=== PATIENT | male | born 1970 | race Caucasian/White ===

== ENCOUNTER 2019-01-01 06:56 | Observation (INO) ==
[2019-01-01] MEDS ORDERED: ASPIRIN PO ONE (07:15)
--- NOTE | 2019-01-01 07:20 | PROVIDER DOCUMENTATION ---
HPI-Chest Pain - General Chief Complaint: B/P Problems Stated Complaint: HIGH BP Time Seen by Provider: 01/01/19 07:10 Source: patient Allergies/Adverse Reactions: Patient Allergies Allergy/AdvReac Type Severity Reaction Status Date / Time Penicillins Allergy ANAPHYLAXIS Verified 09/11/18 10:13 Home Medications: Home Medication List Medication Instructions Recorded Confirmed Last Taken Type Buspirone [Buspar] 15 mg PO BID 01/01/19 01/01/19 Unknown History Lisinopril 10 mg PO DAILY #90 tab 01/01/19 Unknown Rx Melatonin 5 mg PO HS 01/01/19 01/01/19 Unknown History - History of Present Illness-CP Nature of Presenting Problem: patient reports chest pain since 0200 this morning. Describes it as a pressure /squeezing on his chest. Location: reports: substernal Chest Pain Radiation: reports: no radiation Quality of Pain: reports: pressure Timing: improving, intermittent Context/Activities at Onset: reports: other (uncertain) Associated Symptoms: reports: headache Nitro Today/Relief: no nitro taken today Aspirin Treatment Today: no aspirin today Prior Chest Pain/Cardiac Workup: reports: no prior chest pain Similar Symptoms Previously?: No Recently Seen Here or By Another Healthcare Provider: No Review of Systems - Adult - REVIEW OF SYSTEMS - ADULT Constitutional: reports: no symptoms reported Eyes: reports: no symptoms reported Ears, Nose, Mouth & Throat: reports: no symptoms reported Cardiovascular: reports: see HPI Respiratory: reports: no symptoms reported Gastrointestinal: reports: no symptoms reported Genitourinary: reports: no symptoms reported Musculoskeletal: reports: no symptoms reported Integumentary: reports: no symptoms reported Neurological: reports: no symptoms reported Psychiatric: reports: no symptoms reported Endocrine: reports: no symptoms reported Hematologic/Lymphatic: reports: no symptoms reported Allergic/Immunologic: reports: no symptoms reported All Other Systems: Reviewed and Negative Past History - Adult - PAST MEDICAL HISTORY-ADULT Review of Records: reports: Old Records Reviewed Physical Exam-General - PHYSICAL EXAM-ADULT Initial Vital Signs Reviewed: Yes (elev) - CONSTITUTIONAL General Appearance: alert, mild distress (due to discomfort) - EYES Eyes: PERRL/EOMI, pink conjunctivae - HEAD, EARS, NOSE, MOUTH & THROAT HENMT: normocephalic/atraumatic, moist mucous membranes - NECK Neck: non-tender, full range of motion - RESPIRATORY Respiratory: chest non-tender, lungs clear, normal breath sounds - CARDIOVASCULAR Cardiovascular: normal peripheral pulses, regular rate, rhythm, no edema - GASTROINTESTINAL (ABDOMEN) Abdominal Exam: non tender, soft - LYMPHATIC Lymphatic: no adenopathy - MUSCULOSKELETAL Back Exam: normal inspection Extremity: normal range of motion, non-tender, normal gait - SKIN Integumentary: normal color, normal turgor - NEUROLOGIC Neurologic: guest experience manager II-XII nml as tested, grossly normal, no motor/sensory deficits - PSYCHIATRIC Psych/Mental Status: normal mood/affect, normal thought content, normal thought process, oriented x 3 - HEART Score HEART Score: History: Moderately Suspicious HEART Score: ECG: Non-Specific Repolarization Disturbance/LBBB/PM HEART Score: Age: 45-65 Years HEART Score: Risk Factors for Atherosclerotic Disease: 1 or 2 Risk Factors HEART Score: Troponin: < or = Normal Limit Total HEART Score:: 4 Progress - PLAN OF CARE/RESULTS Result Diagrams: 01/01/19 07:20 01/01/19 09:20 - EKG 1 Time of EKG reading by physician:: 07:20 EKG Read and Signed by:: Gustavo North EKG Interpretation (*Must complete 3 of following elements*): Abnormal Rate: 77 Rhythm: sinus VA Interval: normal ST Wave: normal Comments: incomplete rbbb, no ectopy Departure - Departure Date of Disposition Decision: 01/01/19 Time of Disposition Decision: 08:20 DIAGNOSIS: Chest pain Qualifiers: Chest pain type: unspecified Qualified Code(s): R07.9 - Chest pain, unspecified Disposition: ADMITTED INPATIENT 09 Certified Medical Emergency: Emergent Condition: Good - Critical Care Note This patient required my direct & personal management of CC.: No Attestation - Physician/ ERICA Attestation Patient care was provided by Advanced Practice Provider:: No The physician spent face to face time with patient:: Yes Advanced Practice Provider documentation review:: Supervising physician onsite and consulted in the evaluation and care of this patient. The physician did have a face to face encounter with the patient.
[2019-01-01] MEDS ORDERED: NITROGLYCERIN TOP ONE (07:35)
--- NOTE | 2019-01-01 07:37 | Diag Imaging Result Doc PS360 ---
EXAM: CHEST-2 VIEWS - 01/01/2019 HISTORY: chest pain TECHNIQUE: Chest two views COMPARISON: 06/04/2011 FINDINGS: Heart size is normal. There is slight prominence of infrahilar markings. There is no consolidation, pleural effusion, or pneumothorax identified. IMPRESSION: Slight prominence of infrahilar markings. No discrete pneumonia. No other evidence of acute disease. Electronically signed by Ladarius Miller 01/01/2019 7:34 AM
[2019-01-01 07:41] LABS: BASO# 0.05 X1000 (0.0-0.2); BASO% 1.5 % (0.0-0.8); EOS# 0.12 X1000 (0.0-0.7); EOS% 3.6 % (0.0-10.0); HEMATOCRIT 42.9 % (42.0-52.0); HEMOGLOBIN 15.6 g/dL (14.0-18.0); IMM GRAN# 0.01 X1000 (0.0-0.04); IMM GRAN% 0.3 % (0.0-0.5); LYMPH# 0.72 X1000 (1.2-3.4); LYMPH% 21.9 % (20.5-51.1); MCH 31.4 PG (27-31); MCHC 36.4 g/dL (33-37); MCV 86.3 FL (81-99); MONO# 0.29 X1000 (0.11-0.59); MONO% 8.8 % (1.7-9.3); MPV 9.5 FL (7.4-10.4); NEUT% 63.9 % (42.2-75.2); PLT 205 X1000 (130-400); RBC 4.97 XMIL (4.7-6.1); RDW 13.2 % (11.5-14.5); WBC 3.29 X1000 (4.8-10.8)
[2019-01-01 07:57] LABS: AGAP 12; ALKALINE PHOSPHATASE 99 U/L (32-122); BUN 10 mg/dL (8-22); CALCIUM 10.2 mg/dL (8.8-10.2); CHLORIDE 106 mmol/L (98-107); CK PROFILE 162 U/L (24-204); COSMO 281; CREATININE 0.7 mg/dL (0.7-1.2); ESTIMATED GFR > 60; GLUCOSE 113 mg/dL (70-104); GOT 22 U/L (10-34); GPT 14 U/L (10-44); LIPASE 35 U/L (13-60); POTASSIUM 4.5 mmol/L (3.5-5.1); SODIUM 141 mmol/L (136-145); TCO2 24 mmol/L (25-35); TOTAL PROTEIN 7.7 g/dL (6.3-8.3)
[2019-01-01] MEDS ORDERED: TYLENOL PO PRN (08:26)
[2019-01-01] MEDS ORDERED: ZOFRAN IV PRN (08:26)
[2019-01-01] MEDS ORDERED: NITROGLYCERIN SL PRN (08:26)
--- NOTE | 2019-01-01 09:12 | EKG Report ---
Test Performed on : 01/01/2019 07:16:11 AM Test Reason : ER Blood Pressure : / mmHG Vent. Rate : 077 BPM Atrial Rate : 077 BPM P-R Int : 164 ms QRS Dur : 102 ms QT Int : 350 ms P-R-T Axes : 065 022 038 degrees QTc Int : 396 ms Normal sinus rhythm. Incomplete right bundle branch block Inferior infarct , age undetermined Cannot rule out Anterior infarct , age undetermined Abnormal ECG When compared with ECG of 01-JAN-2009 08:27, Minimal criteria for Anterior infarct are now present No significant change was found Unconfirmed Result
[2019-01-01 10:41] LABS: AGAP 12; ALBUMIN 4.6 g/dL (3.5-5.0); ALKALINE PHOSPHATASE 92 U/L (32-122); BUN 9 mg/dL (8-22); CALCIUM 9.6 mg/dL (8.8-10.2); CHLORIDE 105 mmol/L (98-107); COSMO 279; CREATININE 0.7 mg/dL (0.7-1.2); ESTIMATED GFR > 60; GLUCOSE 109 mg/dL (70-104); GOT 23 U/L (10-34); GPT 13 U/L (10-44); POTASSIUM 4.6 mmol/L (3.5-5.1); SODIUM 140 mmol/L (136-145); TCO2 23 mmol/L (25-35); TOTAL PROTEIN 7.4 g/dL (6.3-8.3)
[2019-01-01] MEDS ORDERED: BUSPAR PO SCH (11:04)
[2019-01-01] MEDS ORDERED: APRESOLINE IV PRN (11:20)
[2019-01-01] MEDS ORDERED: PRINIVIL PO SCH (11:30)
--- NOTE | 2019-01-01 14:23 | HISTORY AND PHYSICAL ---
PRIMARY CARE PHYSICIAN: Dr. Jj Pastor. CHIEF COMPLAINT: Chest pain, shortness of breath, nausea, headache, blurred vision that began around 2 a.m. and has progressively worsened. HISTORY OF PRESENT ILLNESS: This is a 48-year-old male who presents to [facility] ER with complaints of left-sided chest pain, nonradiating, that began around 2 a.m. Described it as a tightness in his chest. States he also had some shortness of breath, nausea, headache, and blurred vision. When he arrived to the emergency room his blood pressure was noted to be 187/116. He had not been diagnosed with blood pressure, but has noticed that he has had an elevation when he checks it independently and along with a headache and blurred vision. He also complained of the left-sided chest pain. Workup showed cardiac enzymes x2 sets were negative. EKG showed normal sinus rhythm at 77. So, he is being admitted for further evaluation and treatment. PAST MEDICAL HISTORY: Anxiety. PAST SURGICAL HISTORY: Hemorrhoidectomy, hernia repair x2, tonsillectomy, and a right thumb surgery. FAMILY HISTORY: Reviewed and noncontributory. SOCIAL HISTORY: He currently lives with family. Denies any tobacco use. Drinks 1 to 2 beers occasionally. Denied any illicit drug use. ALLERGIES: Penicillin. HOME MEDICATIONS: He takes BuSpar 15 mg p.o. b.i.d. and melatonin 5 mg p.o. at bedtime. LABORATORY DATA: Showed a white blood cell count of 3.29, hemoglobin of 15.6, hematocrit 42.9, platelets 205,000. D-dimer of 0.28. Sodium 141, potassium 4.5, chloride 106, CO2 24, BUN of 10, creatinine 0.7, glucose 113, magnesium of 2. Cardiac enzymes x2 sets were negative. Lipase was 35. EKG showed normal sinus rhythm at 77. Chest x-ray showed slight prominence of infrahilar markings. No discrete pneumonia. No other evidence of acute disease. REVIEW OF SYSTEMS: He denied any fever, chills. He has had blurred vision, headache, shortness of breath, nausea, left-sided chest pain, nonradiating, as tightness in his chest. Denied any abdominal pain, constipation, diarrhea, burning or hurting with urination. PHYSICAL EXAMINATION: VITAL SIGNS: On arrival, he had a temperature of 98.5 degrees, pulse 79 respirations 20, blood pressure 187/116, saturating 97% on room air. He was given 1 inch nitroglycerin paste to his chest wall. Blood pressure did come down to 154/105. GENERAL: This is a 48-year-old male who is lying in the bed and answers questions appropriately. HENT: Normocephalic, atraumatic. Normal ENT inspection. Oropharynx and nares are clear. EYES: Pupils are equal, round, reactive to light and accommodation. Extraocular movements are intact. NECK: Normal inspection. Normal range of motion. LUNGS: Clear to auscultation bilaterally with equal lung expansion and chest wall movement. HEART: Regular rate and rhythm. No murmurs, rubs, or gallops. ABDOMEN: Soft, nontender, nondistended. Bowel sounds are present x4 quadrants. MUSCULOSKELETAL: He had 5/5 strength x4 extremities. NEUROLOGICAL: The cranial nerves 2-12 appear grossly intact. ASSESSMENT: 1. Chest pain. 2. Hypertension, new onset. PLAN: He was admitted to the medical unit. Placed on O2 per protocol, telemetry, healthy heart diet. We will check an echocardiogram. We will check a lipid panel. Will continue his serial cardiac enzymes. We will place him on lisinopril 5 mg daily, first dose now. I am also going to add some hydralazine 10 mg IV q.4 hours p.r.n. for systolic pressure greater than 190, diastolic greater than 100. Recheck labs in a.m. Further orders after seen by attending. Dictated by YANELY Holland for Jameson Ramirez MD cc: YANELY Holland MD Micah A. Howard, MD
[2019-01-01 16:15] VITALS: BP 139/88
--- NOTE | 2019-01-01 20:45 | HISTORY AND PHYSICAL ---
ADDENDUM: Patient seen and examined by myself. Full note dictated and discussed with nurse practitioner. Patient presented to the hospital with chest pain, chest pressure. Also with headache and blurred vision. He had some shortness of breath. His blood pressures were markedly elevated to 166/118. Notes that he has been told in the past that he has high blood pressure, but he has been too busy at work. He has not been able to follow up. He has not been on any medications. PLAN: We will admit him to the hospital, control his blood pressures, rule out myocardial infarction and follow. Further orders as needed. cc: Jameson Ramirez MD
[2019-01-01] MEDS ORDERED: MELATONIN PO SCH (21:00)
[2019-01-02] MEDS ORDERED: PRILOSEC PO SCH (07:00)
--- NOTE | 2019-01-02 08:01 | ECHO REPORT ---
ORDER DATE: 01/01/2019 INTERPRETING PHYSICIAN: Dr. Mccauley CLINICAL INDICATIONS: Chest pain. M-MODE MEASUREMENTS: Left ventricle end diastole: 4.5 cm. Left ventricle end systole: 2.6 cm. Posterior wall: 1.2 cm. Interventricular septum: 1.2 cm. Left atrium: 2.5 cm. Aortic diameter: 4.7 cm. SUMMARY OF 2-DIMENSIONAL IMAGING: The left ventricular function is normal. Ejection fraction 70%. The chamber appears to be mild to moderately enlarged. No wall motion abnormality is noted. Mitral valve is normal. Color flow mapping unremarkable. Pulse wave Doppler of mitral inflow shows mild reversal of the E/A ratio. Tissue Doppler of septal and lateral mitral annulus averages 3 cm per second. There is no diastolic dysfunction. The aortic root is enlarged. There is mild degree of aortic root regurgitation. I do not see evidence of aortic stenosis. Pulmonic valve was normal with mild degree of regurgitation. Tricuspid valve shows mild degree of regurgitation. The pulmonary pressure is probably normal. There is no pericardial effusion, mass and no thrombus. Right-sided chambers appear to be normal. SUMMARY: This study shows 1. Mild to moderately enlarged left ventricle with mild degree of concentric LVH and excellent LV systolic function. 2. No diastolic dysfunction. 3. Mild enlargement of the aortic root with mild degree of aortic regurgitation. 4. No pulmonary hypertension. Clinical correction recommended. cc: MD Jameson Arguello MD
--- NOTE | 2019-01-02 12:57 | DISCHARGE SUMMARY ---
ADMISSION DATE: 01/01/2019 DISCHARGE DATE: 01/01/2019 DISCHARGE DIAGNOSES: 1. Chest pain, resolved. 2. Headache, resolved. 3. Blurred vision, resolved. 4. Chest pressure, resolved. 5. Shortness of breath, resolved. 6. Uncontrolled hypertension. CONSULTATIONS: None. PROCEDURES: None. BRIEF HOSPITAL COURSE: Patient was admitted to the hospital, treated in the usual fashion, placed on medications to control his blood pressure. After his blood pressure dropped to 139/82, all of his symptoms resolved. On discharge, he is awake and alert. He is in no distress. He is having no chest pain, shortness of breath, no blurred vision, no headache. States he feels back to his normal self. DISPOSITION: Patient will be discharged home. DISCHARGE INSTRUCTIONS: Will follow up outpatient with primary care of choice. Discussed with him how to use lisinopril. He will take 1 a day. He will check his blood pressures every day at home twice daily. If his blood pressures remain elevated, above 140/90, then he will increase his lisinopril to twice daily. cc: Jameson Ramirez MD
== END 2019-01-01 19:30 | disposition home or self-care (01) ==
LOC: P.ED 06:56 → P.MEDSURG 06:56
PROVIDERS: ATTEND Family Medicine
CPT/HCPCS: 71020; 71046; 80053; 82550; 83690; 83735; 84484; 85025; 85379; 93005; 93306; 94761; A9270